=== PATIENT | male | born 1945 | race Caucasian/White ===

== ENCOUNTER 2018-01-10 16:24 | Inpatient (IN) | payer MEDICARE ==
[~2018-01-10] VITALS: Ht 182.9 cm; Wt 121.2 kg
[2018-01-10 16:28] VITALS: BP 134/74; PULSE 105; RESP 18; TEMP 100.1; O2SAT 92
[2018-01-10 16:52] LABS: BILIRUBIN, URINE NEG (NEG); BLOOD, URINE TRACE (NEG); GLUCOSE,URINE 1000 mg/dL (NEG); KETONE, URINE 10 mg/dL (NEG); NITRITE,URINE POS (NEG); PH, URINE 5.5 (5.0-8.5); URINE COLOR YELLOW (YELLW/STRAW); URINE LEUKOCYTE ESTERASE LARGE (NEG); WHITE BLOOD CELL CLUMPS FEW
[2018-01-10] MEDS ORDERED: ATOR40TA16 PO (17:28)
[2018-01-10] MEDS ORDERED: CLOP75TA PO (17:28)
[2018-01-10] MEDS ORDERED: FINA5TAB2 PO (17:28)
[2018-01-10] MEDS ORDERED: TAMS0.4C4 PO (17:28)
[2018-01-10] MEDS ORDERED: LANTUS2P SQ (17:28)
[2018-01-10] MEDS ORDERED: METO1TAB43 PO (17:28)
[2018-01-10] MEDS ORDERED: METF500T PO (17:28)
[2018-01-10] MEDS ORDERED: VITA100021 PO (17:28)
[2018-01-10] MEDS ORDERED: GABA300C5 PO (17:28)
[2018-01-10] MEDS ORDERED: CENTCHW4 CHEW ×2 (17:28)
[2018-01-10] MEDS ORDERED: NOVOLOGP2 SQ (17:28)
[2018-01-10] MEDS ORDERED: LOSA25TA PO (17:28)
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
[2018-01-10] MEDS ORDERED: ACETAMINOPHEN 325 MG TAB PO ONE (17:45)
[2018-01-10] MEDS ORDERED: SODIUM CHLOR 0.9% 1000 ML INJ 1,000 ML IV ONE (17:45)
[2018-01-10] MEDS ORDERED: cefTRIAXone INJ 1,000 MG in SODIUM CHLORIDE 0.9% INJ 100 ML IV ONE (17:45)
--- NOTE | 2018-01-10 17:59 | RADRPT ---
EXAM DATE/TIME: 01/10/2018 17:44 [place] COMPARISON: No previous studies available for comparison. INDICATIONS : Shortness of breath and left upper extremity numbness. MEDICAL HISTORY : Chronic obstructive pulmonary disease. Hypertension SURGICAL HISTORY : Fusion, cervical. Cardiac stent. ENCOUNTER: Initial ACUITY: 2 days PAIN SCORE: 0/10 LOCATION: Bilateral chest FINDINGS: A single view of the chest demonstrates the lungs to be symmetrically aerated without evidence of mas s, infiltrate or effusion. The cardiomediastinal contours are unremarkable. Osseous structures are intact. There is an anterior cervical fusion plate present. CONCLUSION: No acute disease. Tano Obando MD on January 10, 2018 at 17:56 Board Certified Radiologist. This report was verified electronically.
[2018-01-10 18:05] VITALS: BP 131/68; PULSE 96; RESP 20; O2SAT 97
[2018-01-10 18:14] LABS: AUTOMATED NEUTROPHIL # 10.7 TH/MM3 (1.8-7.7); BASOPHIL % 0.2 % (0.0-2.0); EOSINOPHIL % 0.2 % (0.0-4.0); HEMATOCRIT 43.2 % (39.0-51.0); HEMOGLOBIN 14.9 GM/DL (13.0-17.0); LYMPH % 11.9 % (9.0-44.0); LYMPHOCYTE # 1.6 TH/MM3 (1.0-4.8); MEAN CELL VOLUME 90.2 FL (80.0-100.0); MEAN CORPUSCULAR HGB CONC 34.4 % (32.0-36.0); MEAN PLATELET VOLUME 9.2 FL (7.0-11.0); MONO % 6.2 % (0.0-8.0); MONOCYTE # 0.8 TH/MM3 (0-0.9); NEUT % 81.5 % (16.0-70.0); PLATELET COUNT 123 TH/MM3 (150-450); RED BLOOD COUNT 4.79 MIL/MM3 (4.50-5.90); RED CELL DISTRIBUTION WIDTH 13.3 % (11.6-17.2); WHITE BLOOD COUNT 13.1 TH/MM3 (4.0-11.0)
[2018-01-10 18:17] LABS: LACTIC ACID SEPSIS PROTOCOL 2.2 mmol/L (0.4-2.0)
[2018-01-10 18:23] LABS: PROTHROMBIN TIME - PATIENT 10.3 SEC (9.8-11.6)
[2018-01-10 18:33] LABS: ALBUMIN 3.9 GM/DL (3.4-5.0); ALT (GPT) 53 U/L (12-78); AST (GOT) 24 U/L (15-37); BICARBONATE 25.9 MEQ/L (21.0-32.0); BLOOD UREA NITROGEN 13 MG/DL (7-18); CALCIUM 9.3 MG/DL (8.5-10.1); CHLORIDE 96 MEQ/L (98-107); CREATININE 1.41 MG/DL (0.60-1.30); GLOMERULAR FILTRATION RATE 50 ML/MIN (>89); GLUCOSE,RANDOM 328 MG/DL (74-106); SODIUM (NA) 131 MEQ/L (136-145)
[2018-01-10 18:35] LABS: ALKALINE PHOSPHATASE 70 U/L (45-117); TOTAL BILIRUBIN ADULT 0.9 MG/DL (0.2-1.0); TOTAL PROTEIN 7.5 GM/DL (6.4-8.2)
--- NOTE | 2018-01-10 19:42 | HHI.HP ---
HPI Service [facility] Primary Care Physician Non-Staff Admission Diagnosis UTI, sepsis Diagnoses: (1) Sepsis Diagnosis: Principal (2) UTI (urinary tract infection) Diagnosis: Principal (3) VIGNESH (acute kidney injury) Diagnosis: Principal (4) DM (diabetes mellitus) Diagnosis: Principal Travel History International Travel<30 Days: No Contact w/Intl Traveler <30 Da: No Traveled to Known Affected Are: No History of Present Illness This is a 72-year-old male with a PMH of HTN, BPH and DM who presented to the ER with complaints of fever and dysuria x1 day. Denies abdominal pain, nausea, vomiting or diarrhea. On arrival, BP 134/74, HR 105, O2 sat 92% RA, Temp 100.1. WBC 13.1. Platelets 123, no previous labs for comparison. Creatinine 1.41. Lactic Acid 2.2. INR 1.0. UA positive UTI. CXR with no acute findings. S/p Rocephin IV, Blood Cultures and Urine Cultures. Review of Systems Except as stated in HPI: all other systems reviewed are Neg ROS: 14 point review of systems otherwise negative. Past Family Social History Past Medical History PMH: HTN, BPH and DM Past Surgical History PAST SURGICAL HISTORY: Cardiac Stent, Cholecystectomy, Polypectomy, Right Elbow Surgery, Neck surgery Allergies: Coded Allergies: No Known Allergies (Verified Allergy, Unknown, 01/10/18) adhesive tape (Verified Adverse Reaction, Mild, skin peels, 01/10/18) Family History PAST FAMILY HISTORY: Reviewed. No h/o DM or CAD Social History PAST SOCIAL HISTORY: Negative for alcohol, tobacco or drugs. Physical Exam Vital Signs Vital Signs Date Time Temp Pulse Resp B/P (MAP) Pulse Ox O2 Delivery O2 Flow Rate FiO2 01/10/18 18:05 96 20 131/68 (89) 97 Room Air 01/10/18 16:28 100.1 105 18 134/74 (94) 92 Physical Exam PE: GENERAL: Extremely pleasant middle-aged white male in no acute distress. HEENT: PERRLA, EOMI. No scleral icterus or conjunctival pallor. No lid lag or facial droop. CARDIOVASCULAR: Regular rate and rhythm. No obvious murmurs to auscultation. No chest tenderness to palpation. RESPIRATORY: No obvious rhonchi or wheezing. Clear to auscultation. Breath sounds equal bilaterally. GASTROINTESTINAL: Abdomen soft, non-tender, nondistended. BS normal. MUSCULOSKELETAL: Extremities without clubbing, cyanosis, or edema. No obvious deformities. NEUROLOGICAL: Awake, alert and oriented x4. No focal neurologic deficits. Moving both upper and lower extremities spontaneously. Laboratory Laboratory Tests Test 01/10/18 16:30 01/10/18 17:45 Urine Color YELLOW Urine Turbidity CLEAR Urine pH 5.5 Urine Specific [place] 1.040 Urine Protein NEG Urine Glucose (UA) 1000 Urine Ketones 10 Urine Occult Blood TRACE Urine Nitrite POS Urine Bilirubin NEG Urine Urobilinogen LESS THAN 2.0 Urine Leukocyte Esterase LARGE Urine RBC 5 Urine WBC 31 Urine WBC Clumps FEW Microscopic Urinalysis Comment CULTURE INDICATED White Blood Count 13.1 Red Blood Count 4.79 Hemoglobin 14.9 Hematocrit 43.2 Mean Corpuscular Volume 90.2 Mean Corpuscular Hemoglobin 31.0 Mean Corpuscular Hemoglobin Concent 34.4 Red Cell Distribution Width 13.3 Platelet Count 123 Mean Platelet Volume 9.2 Neutrophils (%) (Auto) 81.5 Lymphocytes (%) (Auto) 11.9 Monocytes (%) (Auto) 6.2 Eosinophils (%) (Auto) 0.2 Basophils (%) (Auto) 0.2 Neutrophils # (Auto) 10.7 Lymphocytes # (Auto) 1.6 Monocytes # (Auto) 0.8 Eosinophils # (Auto) 0.0 Basophils # (Auto) 0.0 CBC Comment DIFF FINAL Differential Comment Prothrombin Time 10.3 Prothromb Time International Ratio 1.0 Activated Partial Thromboplast Time 25.2 Blood Urea Nitrogen 13 Creatinine 1.41 Random Glucose 328 Total Protein 7.5 Albumin 3.9 Calcium Level 9.3 Alkaline Phosphatase 70 Aspartate Amino Transf (AST/SGOT) 24 Alanine Aminotransferase (ALT/SGPT) 53 Total Bilirubin 0.9 Sodium Level 131 Potassium Level 4.2 Chloride Level 96 Carbon Dioxide Level 25.9 Anion Gap 9 Estimat Glomerular Filtration Rate 50 Lactic Acid Level 2.2 Date/Time Source Procedure Growth Status 01/10/18 17:45 Blood Peripheral Aerobic Blood Culture Pending Received 01/10/18 17:45 Blood Peripheral Anaerobic Blood Culture Pending Received 01/10/18 16:30 Urine Clean Catch Urine Culture Pending Received Result Diagram: 01/10/18 1745 01/10/18 1745 Caprini VTE Risk Assessment Caprini VTE Risk Assessment: No/Low Risk (score <= 1) Caprini Risk Assessment Model Point Value = 1 Point Value = 2 Point Value = 3 Point Value = 5 Age 41-60 Minor surgery BMI > 25 kg/m2 Swollen legs Varicose veins or History of unexplained or recurrent spontaneous Oral contraceptives or hormone replacement Sepsis (< 1 month) Serious lung disease, including pneumonia (< 1 month) Abnormal pulmonary function Acute myocardial infarction Congestive heart failure (< 1 month) History of inflammatory bowel disease Medical patient at bed rest Age 61-74 Arthroscopic surgery Major open surgery (> 45 min) Laparoscopic surgery (> 45 min) Malignancy Confined to bed (> 72 hours) Immobilizing plaster cast Central venous access Age >= 75 History of VTE Family history of VTE Factor V Leiden Prothrombin [id number] Lupus anticoagulant Anticardiolipin antibodies Elevated serum homocysteine Heparin-induced thrombocytopenia Other congenital or acquired thrombophilia Stroke (< 1 month) Elective arthroplasty Hip, pelvis, or leg fracture Acute spinal cord injury (< 1 month) Prophylaxis Regimen Total Risk Factor Score Risk Level Prophylaxis Regimen 0-1 Low Early ambulation 2 Moderate Order ONE of the following: *Sequential Compression Device (SCD) *Heparin 5000 units SQ BID 3-4 Higher Order ONE of the following medications: *Heparin 5000 units SQ TID *Enoxaparin/Lovenox 40 mg SQ daily (WT < 150 kg, CrCl > 30 mL/min) *Enoxaparin/Lovenox 30 mg SQ daily (WT < 150 kg, CrCl > 10-29 mL/min) *Enoxaparin/Lovenox 30 mg SQ BID (WT < 150 kg, CrCl > 30 mL/min) AND/OR *Sequential Compression Device (SCD) 5 or more Highest Order ONE of the following medications: *Heparin 5000 units SQ TID (Preferred with Epidurals) *Enoxaparin/Lovenox 40 mg SQ daily (WT < 150 kg, CrCl > 30 mL/min) *Enoxaparin/Lovenox 30 mg SQ daily (WT < 150 kg, CrCl > 10-29 mL/min) *Enoxaparin/Lovenox 30 mg SQ BID (WT < 150 kg, CrCl > 30 mL/min) AND *Sequential Compression Device (SCD) Assessment and Plan Problem List: (1) Sepsis ICD Code: A41.9 - Sepsis, unspecified organism Status: Acute (2) UTI (urinary tract infection) ICD Code: N39.0 - Urinary tract infection, site not specified Status: Acute (3) VIGNESH (acute kidney injury) ICD Code: N17.9 - Acute kidney failure, unspecified (4) DM (diabetes mellitus) ICD Code: E11.9 - Type 2 diabetes mellitus without complications Assessment and Plan A/P: 1. Sepsis: Temp 100.1, HR 105, WBC 13.1, Source-UTI. CXR with no acute findings, images reviewed by me. S/p Rocephin IV, Blood Cultures. Continue IVF. Lactic Acid 2.2, repeat 1.5, will monitor. 2. UTI: U/a w/ UTI, follow up urine cultures, continue IV Rocephin/IVF. 3. VIGNESH: Creatinine 1.41, no previous labs for comparison, presumably new. IVF for hydration, repeat labs in am. 4. DM: Sliding scale w/ Accu-Cheks. Hold Metformin in light of sepsis and renal insufficiency. 5. DVT Prophylaxis: SCD/Teds. 6. Social work for d/c planning as needed. 7. Case discussed w/ ER physician at length, labs/records/imaging reviewed by me. Physician Certification 2 Midnight Certification Type: Admission for Inpatient Services Order for Inpatient Services The services are ordered in accordance with Medicare regulations or non- Medicare payer requirements, as applicable. In the case of services not specified as inpatient-only, they are appropriately provided as inpatient services in accordance with the 2-midnight benchmark. Estimated LOS (days): 2 days is the estimated time the patient will need to remain in the hospital, assuming treatment plan goals are met and no additional complications. Post-Hospital Plan: Not yet determined Problem Qualifiers (1) Sepsis: Qualified Codes: A41.9 - Sepsis, unspecified organism (2) UTI (urinary tract infection): Qualified Codes: N30.01 - Acute cystitis with hematuria Paige Cardoza MD Jan 10, 2018 19:42
[2018-01-10] MEDS ORDERED: DEXTROSE 50% IN WATER 50 ML VIAL(D50) IV PUSH PRN (19:45)
[2018-01-10] MEDS ORDERED: SENNOSIDES 8.6 MG TAB PO PRN (19:45)
[2018-01-10] MEDS ORDERED: ONDANSETRON HCL 4 MG/2 ML VIAL IVP PRN (19:45)
[2018-01-10] MEDS ORDERED: MAGNESIUM HYDROXIDE SUSP 30 ML CUP PO PRN (19:45)
[2018-01-10] MEDS ORDERED: LACTULOSE SYRUP 20 GM/30 ML CUP PO PRN (19:45)
[2018-01-10] MEDS ORDERED: ACETAMINOPHEN 325 MG TAB PO PRN (19:45)
[2018-01-10] MEDS ORDERED: SODIUM CHLORIDE 0.9% FLUSH 10 ML FLUSH IV FLUSH PRN (19:45)
[2018-01-10] MEDS ORDERED: ACETAMINOPHEN/HYDROcodone 325 MG/5 MG TAB PO PRN (19:45)
[2018-01-10] MEDS ORDERED: BISACODYL 10 MG SUPP RECTAL PRN (19:45)
[2018-01-10] MEDS ORDERED: MORPHINE SULFATE 2 MG/ML INJ IV PUSH PRN (19:45)
[2018-01-10] MEDS ORDERED: GLUCAGON 1 MG/ML VIAL OTHER PRN (19:45)
[2018-01-10 21:15] VITALS: BP 135/73; PULSE 85; RESP 20; TEMP 98.8; O2SAT 95
[2018-01-10] MEDS: GABAPENTIN 300 MG CAP PO SCH (22:00)
[2018-01-10] MEDS: TAMSULOSIN HCL 0.4 MG CAP PO SCH (22:00)
[2018-01-10] MEDS: METOPROLOL SUCCINATE 50 MG EXTENDED RELEASE TAB PO SCH (22:00)
[2018-01-10] MEDS: DOCUSATE SODIUM 50 MG/SENNA 8.6 MG TAB PO SCH (22:00)
[2018-01-10] MEDS: ATORVASTATIN 40 MG TAB PO SCH (22:01)
[2018-01-10] MEDS: INSULIN ASPART SUPPLEMENTAL SCALE SQ SCH (22:01)
[2018-01-10] MEDS: SODIUM CHLOR 0.9% 1000 ML INJ 1,000 ML IV SCH (22:01)
[2018-01-10] MEDS: SODIUM CHLORIDE 0.9% FLUSH 10 ML FLUSH IV FLUSH SCH (22:01)
[2018-01-10 23:40] VITALS: PULSE 105
[2018-01-10 23:47] VITALS: BP 136/66; PULSE 113; RESP 20; TEMP 102.7; O2SAT 97
[2018-01-11] VITALS (7 sets, daily range): BP systolic 111–152; BP diastolic 56–76; PULSE 75–94; RESP 18–20; TEMP 97.9–99.5; O2SAT 94–95
[2018-01-11 05:22] LABS: AUTOMATED NEUTROPHIL # 8.4 TH/MM3 (1.8-7.7); BASOPHIL % 0.2 % (0.0-2.0); EOSINOPHIL % 0.2 % (0.0-4.0); HEMATOCRIT 41.4 % (39.0-51.0); HEMOGLOBIN 14.3 GM/DL (13.0-17.0); LYMPH % 16.3 % (9.0-44.0); LYMPHOCYTE # 1.8 TH/MM3 (1.0-4.8); MEAN CELL VOLUME 89.7 FL (80.0-100.0); MEAN CORPUSCULAR HGB CONC 34.5 % (32.0-36.0); MEAN PLATELET VOLUME 9.4 FL (7.0-11.0); MONO % 7.4 % (0.0-8.0); MONOCYTE # 0.8 TH/MM3 (0-0.9); NEUT % 75.9 % (16.0-70.0); PLATELET COUNT 105 TH/MM3 (150-450); RED BLOOD COUNT 4.62 MIL/MM3 (4.50-5.90); RED CELL DISTRIBUTION WIDTH 13.1 % (11.6-17.2); WHITE BLOOD COUNT 11.1 TH/MM3 (4.0-11.0)
[2018-01-11 05:28] LABS: ALBUMIN 3.4 GM/DL (3.4-5.0); ALKALINE PHOSPHATASE 63 U/L (45-117); ALT (GPT) 42 U/L (12-78); AST (GOT) 19 U/L (15-37); BICARBONATE 22.9 MEQ/L (21.0-32.0); CALCIUM 8.4 MG/DL (8.5-10.1); CHLORIDE 102 MEQ/L (98-107); CREATININE 1.18 MG/DL (0.60-1.30); GLOMERULAR FILTRATION RATE 61 ML/MIN (>89); GLUCOSE,RANDOM 241 MG/DL (74-106); SODIUM (NA) 135 MEQ/L (136-145); TOTAL BILIRUBIN ADULT 0.9 MG/DL (0.2-1.0); TOTAL PROTEIN 6.9 GM/DL (6.4-8.2)
[2018-01-11] MEDS: SODIUM CHLOR 0.9% 1000 ML INJ 1,000 ML IV SCH ×2 (05:28→15:32)
[2018-01-11 05:29] LABS: BLOOD UREA NITROGEN 13 MG/DL (7-18)
[2018-01-11] MEDS: DOCUSATE SODIUM 50 MG/SENNA 8.6 MG TAB PO SCH ×2 (08:05→21:00)
[2018-01-11] MEDS: GABAPENTIN 300 MG CAP PO SCH ×2 (08:06→20:55)
[2018-01-11] MEDS: CLOPIDOGREL 75 MG TAB PO SCH (08:06)
[2018-01-11] MEDS: INSULIN ASPART SUPPLEMENTAL SCALE SQ SCH ×4 (08:07→20:56)
[2018-01-11] MEDS: FINASTERIDE 5 MG TAB PO SCH (08:07)
[2018-01-11] MEDS: TAMSULOSIN HCL 0.4 MG CAP PO SCH ×2 (08:07→21:00)
[2018-01-11] MEDS: SODIUM CHLORIDE 0.9% FLUSH 10 ML FLUSH IV FLUSH SCH ×2 (08:37→21:00)
--- NOTE | 2018-01-11 16:07 | HHI.PR ---
Subjective Remarks Patient states dysuria resolved denies fevers or chills Denies abdominal pain, nausea or vomiting Objective Vitals Vital Signs Date Time Temp Pulse Resp B/P (MAP) Pulse Ox O2 Delivery O2 Flow Rate FiO2 01/11/18 12:00 98.2 76 20 111/56 (74) 95 01/11/18 08:00 Room Air 01/11/18 08:00 98.0 81 20 152/76 (101) 95 01/11/18 03:40 94 01/11/18 03:38 97.9 91 20 116/61 (79) 94 01/10/18 23:51 Room Air 01/10/18 23:47 102.7 113 20 136/66 (89) 97 01/10/18 23:40 105 01/10/18 21:15 98.8 85 20 135/73 (93) 95 01/10/18 20:45 01/10/18 18:05 96 20 131/68 (89) 97 Room Air 01/10/18 16:28 100.1 105 18 134/74 (94) 92 I/O 01/10/18 01/10/18 01/10/18 01/11/18 01/11/18 01/11/18 07:00 15:00 23:00 07:00 15:00 23:00 Intake Total 1100 ml 1200 ml 480 ml Output Total 750 ml Balance 1100 ml 450 ml 480 ml Intake Oral 200 ml 480 ml IV Total 1100 ml 1000 ml Output Urine Total 750 ml # Voids 1 4 # Bowel Movements 2 Result Diagram: 01/11/18 0410 01/11/18 0410 Imaging Last Impressions Chest X-Ray 01/10/18 5726 Signed Impressions: Service Date/Time: Wednesday, January 10, 2018 17:44 - CONCLUSION: No acute disease. Tano Obando MD Objective Remarks AAOx3 nad Clear lungs S1S2 RRR abdomen obese, soft, positive bowel sounds no edema in lower extremities Medications and IVs Current Medications Medications (Trade) Dose Ordered Sig/Anjelica Route Start Time Stop Time Status Last Admin (D50w (Vial) Inj) 50 ml UNSCH PRN IV PUSH 01/10/18 19:45 (Glucagon Inj) 1 mg UNSCH PRN OTHER 01/10/18 19:45 (NovoLOG SUPPLEMENTAL SCALE) 1 ACHS SLIDING SCALE SQ 01/10/18 21:00 01/11/18 12:59 Ceftriaxone Sodium 1000 mg/ Sodium Chloride 100 ml @ 200 mls/hr Q24H IV 01/11/18 20:00 Sodium Chloride 1,000 ml @ 100 mls/hr Q10H IV 01/10/18 20:00 01/11/18 15:32 (NS Flush) 2 ml UNSCH PRN IV FLUSH 01/10/18 19:45 (NS Flush) 2 ml BID IV FLUSH 01/10/18 21:00 01/10/18 22:01 (Zofran Inj) 4 mg Q6H PRN IVP 01/10/18 19:45 (Tylenol) 650 mg Q6H PRN PO 01/10/18 19:45 01/10/18 23:34 (Altus 5-325 Mg) 1 tab Q4H PRN PO 01/10/18 19:45 (Morphine Inj) 2 mg Q3H PRN IV PUSH 01/10/18 19:45 (Kandy-Colace) 1 tab BID PO 01/10/18 21:00 01/10/18 22:00 (Milk Of Magnesia Liq) 30 ml Q12H PRN PO 01/10/18 19:45 (Senokot) 17.2 mg Q12H PRN PO 01/10/18 19:45 (Dulcolax Supp) 10 mg DAILY PRN RECTAL 01/10/18 19:45 (Lactulose Liq) 30 ml DAILY PRN PO 01/10/18 19:45 (Lipitor) 40 mg HS PO 01/10/18 21:00 01/10/18 22:01 (Plavix) 75 mg DAILY PO 01/11/18 09:00 01/11/18 08:06 (Proscar) 5 mg DAILY PO 01/11/18 09:00 01/11/18 08:07 (Neurontin) 300 mg BID PO 01/10/18 21:00 01/11/18 08:06 (Flomax) 0.4 mg BID PO 01/10/18 21:00 01/11/18 08:07 (Toprol Xl) 100 mg HS PO 01/10/18 21:00 01/10/18 22:00 (Levemir Inj) 54 units HS SQ 01/11/18 21:00 A/P Problem List: (1) Sepsis ICD Code: A41.9 - Sepsis, unspecified organism Status: Acute (2) UTI (urinary tract infection) ICD Code: N39.0 - Urinary tract infection, site not specified Status: Acute (3) VIGNESH (acute kidney injury) ICD Code: N17.9 - Acute kidney failure, unspecified (4) DM (diabetes mellitus) ICD Code: E11.9 - Type 2 diabetes mellitus without complications Assessment and Plan 1. Sepsis: Temp 100.1, HR 105, WBC 13.1, Source-UTI. CXR with no acute findings, images reviewed by me. S/p Rocephin IV, Blood Cultures. Continue IVF. Lactic Acid 2.2, repeat 1.5, will monitor. 01/11 Sepsis clinically resolving. Continnue IV Rocephin. 2. UTI: U/a w/ UTI, follow up urine cultures, continue IV Rocephin/IVF. 01/11 Urine culture is growing gram negative rods. 3. VIGNESH: Creatinine 1.41, no previous labs for comparison, presumably new. IVF for hydration, repeat labs in am. 01/11 VIGNESH resolving, continue IV lfuids. 4. DM: Sliding scale w/ Accu-Cheks. Hold Metformin in light of sepsis and renal insufficiency. 01/11 Blood sugars severely elevated in the 300's. Resume home insulin Levemir and continue SSI. 5. DVT Prophylaxis: SCD/Teds. Will add lovenox SQ. Problem Qualifiers (1) Sepsis: Qualified Codes: A41.9 - Sepsis, unspecified organism (2) UTI (urinary tract infection): Qualified Codes: N30.01 - Acute cystitis with hematuria Buddy Billingsley MD Jan 11, 2018 16:07
[2018-01-11] MEDS ORDERED: cefTRIAXone INJ 1,000 MG in SODIUM CHLORIDE 0.9% INJ 100 ML IV SCH (20:00)
[2018-01-11] MEDS: METOPROLOL SUCCINATE 50 MG EXTENDED RELEASE TAB PO SCH (20:55)
[2018-01-11] MEDS: ATORVASTATIN 40 MG TAB PO SCH (20:56)
[2018-01-11] MEDS ORDERED: INSULIN DETEMIR 100 UNITS/ML VIAL SQ SCH (21:00)
[2018-01-12] VITALS: BP 127/75; PULSE 70; PULSE 71; RESP 18; TEMP 99.1; O2SAT 95
[2018-01-12] MEDS ORDERED: ENOXAPARIN SODIUM 40 MG/0.4 ML SYRINGE SQ SCH
[2018-01-12] MEDS: SODIUM CHLOR 0.9% 1000 ML INJ 1,000 ML IV SCH (02:49)
[2018-01-12 04:00] VITALS: BP 129/72; PULSE 69; RESP 18; TEMP 98.5; O2SAT 94
[2018-01-12 04:06] VITALS: PULSE 69
[2018-01-12 08:00] VITALS: BP 143/83; PULSE 66; PULSE 67; RESP 20; TEMP 98.3; O2SAT 95
[2018-01-12] MEDS: FINASTERIDE 5 MG TAB PO SCH (08:53)
[2018-01-12] MEDS: GABAPENTIN 300 MG CAP PO SCH (08:53)
[2018-01-12] MEDS: CLOPIDOGREL 75 MG TAB PO SCH (08:53)
[2018-01-12] MEDS: TAMSULOSIN HCL 0.4 MG CAP PO SCH (08:53)
[2018-01-12] MEDS: SODIUM CHLORIDE 0.9% FLUSH 10 ML FLUSH IV FLUSH SCH (08:54)
[2018-01-12] MEDS: INSULIN ASPART SUPPLEMENTAL SCALE SQ SCH ×2 (08:54→12:19)
[2018-01-12] MEDS: DOCUSATE SODIUM 50 MG/SENNA 8.6 MG TAB PO SCH (08:55)
[2018-01-12 11:51] LABS: AUTOMATED NEUTROPHIL # 5.7 TH/MM3 (1.8-7.7); BASOPHIL % 0.2 % (0.0-2.0); EOSINOPHIL # 0.1 TH/MM3 (0-0.4); EOSINOPHIL % 1.2 % (0.0-4.0); HEMATOCRIT 38.9 % (39.0-51.0); HEMOGLOBIN 13.4 GM/DL (13.0-17.0); LYMPHOCYTE # 1.4 TH/MM3 (1.0-4.8); MEAN CORPUSCULAR HEMOGLOBIN 31.1 PG (27.0-34.0); MEAN CORPUSCULAR HGB CONC 34.5 % (32.0-36.0); MEAN PLATELET VOLUME 9.4 FL (7.0-11.0); MONO % 8.3 % (0.0-8.0); MONOCYTE # 0.6 TH/MM3 (0-0.9); NEUT % 72.3 % (16.0-70.0); PLATELET COUNT 113 TH/MM3 (150-450); RED BLOOD COUNT 4.32 MIL/MM3 (4.50-5.90); RED CELL DISTRIBUTION WIDTH 12.8 % (11.6-17.2); WHITE BLOOD COUNT 7.8 TH/MM3 (4.0-11.0)
[2018-01-12 12:00] VITALS: BP 156/85; PULSE 70; RESP 20; TEMP 98; O2SAT 95
[2018-01-12 12:18] LABS: ALBUMIN 3.2 GM/DL (3.4-5.0); AST (GOT) 20 U/L (15-37); BICARBONATE 23.3 MEQ/L (21.0-32.0); BLOOD UREA NITROGEN 13 MG/DL (7-18); CALCIUM 8.8 MG/DL (8.5-10.1); CHLORIDE 103 MEQ/L (98-107); CREATININE 1.03 MG/DL (0.60-1.30); GLOMERULAR FILTRATION RATE 71 ML/MIN (>89); GLUCOSE,RANDOM 238 MG/DL (74-106); MAGNESIUM 2.2 MG/DL (1.5-2.5); SODIUM (NA) 134 MEQ/L (136-145)
[2018-01-12 12:19] LABS: ALT (GPT) 40 U/L (12-78); PHOSPHORUS 2.4 MG/DL (2.5-4.9)
[2018-01-12 12:21] LABS: ALKALINE PHOSPHATASE 66 U/L (45-117); TOTAL BILIRUBIN ADULT 0.5 MG/DL (0.2-1.0); TOTAL PROTEIN 6.8 GM/DL (6.4-8.2)
[2018-01-12] MEDS ORDERED: CEFU1TAB20 PO (13:37)
--- NOTE | 2018-01-12 13:38 | HHI.DCPOC ---
Discharge Care Plan Diagnosis: (1) Sepsis (2) UTI (urinary tract infection) (3) DM (diabetes mellitus) (4) VIGNESH (acute kidney injury) Goals to Promote Your Health * To prevent worsening of your condition and complications * To maintain your health at the optimal level Directions to Meet Your Goals Take your medications as prescribed Follow your dietary instruction Follow activity as directed Keep your appointments as scheduled Take your immunizations and boosters as scheduled If your symptoms worsen call your PCP, if no PCP go to Urgent Care Center or Emergency Room Smoking is Dangerous to Your Health. Avoid second hand smoke Call the 24-hour hour crisis hotline for domestic abuse at Buddy Billingsley MD Jan 12, 2018 13:38
--- NOTE | 2018-01-12 13:56 | HHI.DS ---
Discharge Summary Admission Date Jan 10, 2018 at 19:38 Discharge Date: Jan 12, 2018 Admitting Diagnosis UTI, sepsis (1) Sepsis ICD Code: A41.9 - Sepsis, unspecified organism Diagnosis: Principal Status: Resolved (2) UTI (urinary tract infection) ICD Code: N39.0 - Urinary tract infection, site not specified Diagnosis: Principal Status: Acute (3) VIGNESH (acute kidney injury) ICD Code: N17.9 - Acute kidney failure, unspecified Diagnosis: Principal Status: Resolved (4) DM (diabetes mellitus) ICD Code: E11.9 - Type 2 diabetes mellitus without complications Diagnosis: Principal Status: Chronic Procedures none Brief History - From Admission This is a 72-year-old male with a PMH of HTN, BPH and DM who presented to the ER with complaints of fever and dysuria x1 day. Denies abdominal pain, nausea, vomiting or diarrhea. On arrival, BP 134/74, HR 105, O2 sat 92% RA, Temp 100.1. WBC 13.1. Platelets 123, no previous labs for comparison. Creatinine 1.41. Lactic Acid 2.2. INR 1.0. UA positive UTI. CXR with no acute findings. S/p Rocephin IV, Blood Cultures and Urine Cultures. CBC/BMP: 01/12/18 1123 01/12/18 1123 Significant Findings Laboratory Tests Test 01/10/18 16:30 01/10/18 17:45 01/10/18 20:35 01/11/18 04:10 Urine Specific [place] 1.040 (1.002-1.035) Urine Glucose (UA) 1000 mg/dL (NEG) Urine Ketones 10 mg/dL (NEG) Urine Occult Blood TRACE (NEG) Urine Nitrite POS (NEG) Urine Leukocyte Esterase LARGE (NEG) Urine RBC 5 /hpf (0-3) Urine WBC 31 /hpf (0-5) Urine WBC Clumps FEW (NONE) White Blood Count 13.1 TH/MM3 (4.0-11.0) 11.1 TH/MM3 (4.0-11.0) Platelet Count 123 TH/MM3 (150-450) 105 TH/MM3 (150-450) Neutrophils (%) (Auto) 81.5 % (16.0-70.0) 75.9 % (16.0-70.0) Neutrophils # (Auto) 10.7 TH/MM3 (1.8-7.7) 8.4 TH/MM3 (1.8-7.7) Creatinine 1.41 MG/DL (0.60-1.30) Random Glucose 328 MG/DL (74-106) 241 MG/DL (74-106) Sodium Level 131 MEQ/L (136-145) 135 MEQ/L (136-145) Chloride Level 96 MEQ/L (98-107) Estimat Glomerular Filtration Rate 50 ML/MIN (>89) 61 ML/MIN (>89) Lactic Acid Level 2.2 mmol/L (0.4-2.0) Calcium Level 8.4 MG/DL (8.5-10.1) Test 01/12/18 11:23 Red Blood Count 4.32 MIL/MM3 (4.50-5.90) Hematocrit 38.9 % (39.0-51.0) Platelet Count 113 TH/MM3 (150-450) Neutrophils (%) (Auto) 72.3 % (16.0-70.0) Monocytes (%) (Auto) 8.3 % (0.0-8.0) Random Glucose 238 MG/DL (74-106) Albumin 3.2 GM/DL (3.4-5.0) Phosphorus Level 2.4 MG/DL (2.5-4.9) Sodium Level 134 MEQ/L (136-145) Estimat Glomerular Filtration Rate 71 ML/MIN (>89) Imaging Last Impressions Chest X-Ray 01/10/18 [id number] Signed Impressions: Service Date/Time: Wednesday, January 10, 2018 17:44 - CONCLUSION: No acute disease. Tano Obando MD PE at Discharge AAOx3 nad Clear lungs S1S2 RRR abdomen obese, soft, positive bowel sounds no edema in lower extremities Pt update on day of discharge Patient denies chest pain, shortness of breath, patient is afebrile, denies nausea vomiting or abdominal pain. Hospital Course The patient was admitted the medical floor, monitor on telemetry. Found to be septic with a temperature of 100.1F, heart rate 105, leukocytosis of 13.1 with the source of the infection being urinary tract infection. Chest x-ray was obtained without any acute findings. The patient was on IV Rocephin and treated supportively with IV fluids, Tylenol as needed for fever. Urine culture grew pansensitive E. coli. Patient t discharge home with cefuroxime for 10 days. The patient was advised to follow-up with an urologist at home. The patient replied that he already had a follow-up appointment with 1 coming soon. The patient also was found to have acute kidney injury with a creatinine 1.41 on admission. Patient was treated with IV fluids. Creatinine prior to discharge was 1.03 and acute kidney injury resolving. No previous labs were available for comparison. Patient was placed on SSI with Accu-Cheks control his diabetes, however this was very elevated and his home insulin Levemir was resumed. That sugars were much improved in the 170s prior to discharge. The patient was instructed to return to his home insulin regimen. The patient was placed on Lovenox subcutaneously and SCDs for DVT prophylaxis during his hospital stay. Cultures were negative 2 prior to discharge. Patient was also found to be hyponatremic with sodium of 131, likely due to dehydration secondary to sepsis and UTI. Treated with IV normal saline and improved. BMP was monitored throughout hospital stay. Pt Condition on Discharge: Stable Discharge Disposition: Discharge Home Discharge Time: <= 30 minutes Discharge Instructions DIET: Follow Instructions for: Diabetic Diet Activities you can perform: Regular-No Restrictions Follow up Referrals: PCP Follow-up - 2 Weeks Urology - 2 Weeks New Medications: Cefuroxime (Cefuroxime) 500 Mg Tab 500 MG PO BID for Infection, #20 TAB 0 Refills Continued Medications: Atorvastatin (Atorvastatin) 40 Mg Tab 40 MG PO HS for Cholesterol Management, #30 TAB 0 Refills Clopidogrel (Clopidogrel) 75 Mg Tab 75 MG PO DAILY for Blood Clot Prevention, #30 TAB 0 Refills Cyanocobalamin (Vitamin B-12) 1,000 Mcg Subl 1000 MCG PO HS for Nutritional Supplement, TAB.SL 0 Refills Finasteride (Finasteride) 5 Mg Tab 5 MG PO DAILY for Manage Prostate Problems, #30 TAB 0 Refills Do not crush. Gabapentin (Gabapentin) 300 Mg Cap 300 MG PO BID, #60 CAP 0 Refills Insulin Aspart Inj (Novolog Inj) 1,000 Unit/10 Ml Vial 16 UNITS SQ ACHS for Blood Sugar Management, #10 ML 0 Refills Max dose at bedtime:( )units; sugars less than 70,(0) units; sugars 150-199,(5) units; sugars 200-249,(10) units; sugars 250-299,(15) units; sugars 300-349,(20)units; sugars greater than 349,(25)units Insulin Glargine Inj (Lantus Inj) 1,000 Unit/10 Ml Vial 54 UNITS SQ HS for Blood Sugar Management, VIAL 0 Refills Losartan (Losartan) 25 Mg Tab 25 MG PO DAILY for Blood Pressure Management, #30 TAB 0 Refills Metformin (Metformin) 500 Mg Tab 500 MG PO HS for Blood Sugar Management, #30 TAB 0 Refills With a meal Metoprolol Succinate ER 24 HR (Metoprolol Succinate ER 24 HR) 100 Mg Tab 100 MG PO HS, #30 TAB 0 Refills Multiple Vitamins W/ Minerals (Centrum) 1 Chew 1 TAB CHEW DAILY for Nutritional Supplement, TAB 0 Refills Multiple Vitamins W/ Minerals (Centrum) 1 Chew 1 TAB CHEW BID for Nutritional Supplement, TAB 0 Refills Tamsulosin (Tamsulosin) 0.4 Mg Cap 0.4 MG PO BID for Manage Prostate Problems, #30 CAP 0 Refills Buddy Billingsley MD Jan 12, 2018 13:56
== END 2018-01-12 14:50 | disposition home or self-care (01) | DRG 872 ==
LOC: NEPC 16:24 → NEDA 19:38 → N04A 20:49
PROVIDERS: ADMIT Hospitalist; ATTEND Hospitalist
DX: A41.51 Sepsis due to Escherichia coli [E. coli] (principal); N17.9 Acute kidney failure, unspecified; E11.65 Type 2 diabetes mellitus with hyperglycemia; E87.1 Hypo-osmolality and hyponatremia; N39.0 Urinary tract infection, site not specified; I48.91 Unspecified atrial fibrillation; I10 Essential (primary) hypertension; E78.5 Hyperlipidemia, unspecified; E86.0 Dehydration; R65.20 Severe sepsis without septic shock; M54.2 Cervicalgia; G89.29 Other chronic pain; I25.2 Old myocardial infarction; N40.0 Benign prostatic hyperplasia without lower urinary tract symptoms; Z79.4 Long term (current) use of insulin; Z86.73 Personal history of transient ischemic attack (TIA), and cerebral infarction without residual deficits; Z95.5 Presence of coronary angioplasty implant and graft
CPT/HCPCS: 71045; 80053; 81001; 82948; 83605; 83735; 84100; 85025; 85610; 85730; 87040; 87077; 87086; 87186; 96365; J0696; J1650; J1815; J7030

== ENCOUNTER 2018-10-22 13:44 | Observation (INO) ==
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
[2018-10-22 15:24] LABS: Baso % (Auto) 0.5 % (0.0-2.0); Eos # (Auto) 0.1 th/mm3 (0.0-0.4); Eos % (Auto) 1.9 % (0.0-4.0); Hematocrit 43.7 % (39.0-51.0); Hemoglobin 15.1 gm/dL (13.0-17.0); Lymph % (Auto) 32.7 % (9.0-44.0); Mean Corpuscular HGB Conc 34.6 % (32.0-36.0); Mean Corpuscular Hemoglobin 31.3 pg (27.0-34.0); Mean Corpuscular Volume 90.5 fL (80.0-100.0); Mean Platelet Volume 9.5 fL (7.0-11.0); Mono # (Auto) 0.5 th/mm3 (0.0-0.9); Mono % (Auto) 7.6 % (0.0-8.0); Neut # (Auto) 3.4 th/mm3 (1.8-7.7); Neut % (Auto) 57.3 % (16.0-70.0); Platelet Count 140 th/mm3 (150-450); Red Blood Count 4.83 mil/mm3 (4.50-5.90); Red Cell Distribution Width 13.2 % (11.6-17.2)
[2018-10-22 15:45] LABS: Activated Partial Thrombo Time 24.5 sec (23.4-31.7); Prothrombin Time 10.4 sec (9.8-11.6)
--- NOTE | 2018-10-22 15:48 | XR ---
EXAM DATE: 10/22/2018 3:46 PM EST AGE/SEX: 73 years / Male INDICATIONS: Chest pain and short of breath. CLINICAL DATA: This is the patient's initial encounter. Patient reports that signs and symptoms have been present for 2 days and indicates a pain score of 3/10. MEDICAL/SURGICAL HISTORY: . Congetive heart failure, agent orange exposure. None. COMPARISON: [facility] [place], [place]. . FINDINGS: A single AP view of the chest demonstrates the lungs to be symmetrically aerated without evidence of mass, infiltrate or effusion. The cardiomediastinal contours are stable. Postsurgical features of l ower cervical fixation. Osseous structures are intact. CONCLUSION: 1. Stable mild compensated cardiomegaly. Electronically signed by: Isra Ortega MD Board Certified Radiologist 10/22/2018 3:47 PM EST
[2018-10-22] MEDS ORDERED: Acetaminophen 325 MG Tablet PO ONE (15:55)
[2018-10-22 16:00] LABS: Alanine Aminotransferase 66 U/L (12-78); Anion Gap 9 meq/L (5-15); Aspartate Aminotransferase 35 U/L (15-37); Blood Urea Nitrogen 15 mg/dL (7-18); Calcium 8.9 mg/dL (8.5-10.1); Chloride 104 meq/L (98-107); Glomerular Filtration Rate 63 mL/min (>89); Glucose,Random 232 mg/dL (74-106); Magnesium 2.4 mg/dL (1.5-2.5); Potassium 4.1 meq/L (3.5-5.1); Sodium 139 meq/L (136-145)
[2018-10-22 16:03] LABS: Alkaline Phosphatase 60 U/L (45-117); Creatine Kinase 109 U/L (39-308); Total Protein 7.5 g/dL (6.4-8.2)
[2018-10-22 16:16] LABS: Creatine Kinase MB 1.8 ng/mL (0.5-3.6)
--- NOTE | 2018-10-22 17:18 | CT ---
EXAM DATE: 10/22/2018 5:13 PM EST AGE/SEX: 73 years / Male INDICATIONS: Patient experiences chest pain and shortness of breath for 5 days. CLINICAL DATA: This is the patient's initial encounter. Patient reports that signs and symptoms have been present for 4 - 6 days and indicates a pain score of 4/10. MEDICAL/SURGICAL HISTORY: Congestive heart failure. Chronic obstructive pulmonary disease. Diabet es. Appendectomy. RADIATION DOSE: 23.31 CTDI (mGy) COMPARISON: [facility], CHEST 1V SINGLE AP, 10/22/2018. . TECHNIQUE: Volumetric scanning was performed using a multi-row detector CT scanner during bolus infu samara of 72 ml Omnipaque 350 (iohexol) nonionic water-soluble contrast as a single exam dose. The beatrice a was post processed with a variety of visualization algorithms including full volume maximum intensi ty projection and sliding thin slab reformation. Using automated exposure control and adjustment of t he mA and/or kV according to patient size, radiation dose was kept as low as reasonably achievable to obtain optimal diagnostic quality images. DICOM format image data is available electronically for r eview and comparison. FINDINGS: Pulmonary Arteries: No filling defects are seen in the pulmonary arteries out to the subsegmental ve ssels. The left and right pulmonary arteries are normal in diameter. Lung: There is a solitary pulmonary nodule measuring 8 mm in the right perihilar area. Otherwise, th e lungs are clear and well-aerated. No focal or acute pulmonary infiltrates are demonstrated. Effusion: None. Mediastinum: A few nonspecific mediastinal lymph nodes are demonstrated. Other: The axilla is unremarkable. There is evidence of fatty infiltration throughout the liver. CONCLUSION: 1. No evidence of pulmonary embolism. 2. Single well-defined 8 mm pulmonary nodule in the right perihilar area. Recommend PET/CT to evalua te for focal hypermetabolic activity. Electronically signed by: Dejan Christiansen MD Board Certified Radiologist 10/22/2018 5:17 PM EST
--- NOTE | 2018-10-22 18:14 | P.HPFP ---
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 Empagliflozin was recently added. SSI w/accuchecks Con't home Gabapentin 300 mg BID Other meds BPH: Flomax for urination. Hold proscar to prevent polypharmacy Fluids: none Electrolytes: PRN Nutrition: Diabetic diet DVT prophy: Plavix, SCDs DNR code <Rahel Chen N - 10/22/18 21:21> - Attending Attestation The exam, history, and the medical decision-making described in the above note were completed with the assistance of the resident physician. I reviewed and agree with the findings presented. I attest that I had a [id number] encounter with the patient on the following day, and personally performed and documented my assessment and findings in the medical record. See my documentation on 10/23/18. <Cameron Strong - 10/23/18 13:59>
[2018-10-22 18:41] LABS: Bilirubin,Urine Negative (Negative); Clarity,Urine Clear (Clear); Color,Urine Yellow (Yellw/Straw); Glucose,Urine (UA) 500 or Greater mg/dL (Negative); Leukocyte Esterase,Urine Negative (Negative); Mucus,Urine Few /lpf (Occasional); Nitrite,Urine Negative (Negative); Specific Gravity,Urine 1.028 (1.002-1.035)
[2018-10-22] MEDS ORDERED: MethylPREDNISolone Sod Succinate Inj 40 MG/ML Vial IV.PUSH ONE (19:14)
[2018-10-22] MEDS ORDERED: Bisacodyl 10 MG Supp RECTAL PRN (19:19)
[2018-10-22] MEDS ORDERED: Dextrose 50% in Water 50 ML Vial IV.PUSH PRN (19:21)
[2018-10-22] MEDS ORDERED: Finasteride 5 MG Tablet PO SCH (19:30)
[2018-10-22] MEDS: Gabapentin 300 MG Capsule PO SCH (20:30)
[2018-10-22] MEDS: Azithromycin 250 MG Tablet PO SCH (20:30)
[2018-10-22] MEDS: Insulin NovoLOG Aspart Correctional Sugar Inj SQ SCH (20:51)
[2018-10-22] MEDS ORDERED: CLOBETASOL TOPICAL SCH (21:00)
[2018-10-22 21:44] LABS: Baso % (Auto) 0.5 % (0.0-2.0); Eos # (Auto) 0.1 th/mm3 (0.0-0.4); Hematocrit 43.9 % (39.0-51.0); Hemoglobin 15.4 gm/dL (13.0-17.0); Lymph # (Auto) 2.2 th/mm3 (1.0-4.8); Lymph % (Auto) 35.8 % (9.0-44.0); Mean Corpuscular Hemoglobin 31.6 pg (27.0-34.0); Mean Corpuscular Volume 90.2 fL (80.0-100.0); Mean Platelet Volume 9.1 fL (7.0-11.0); Mono # (Auto) 0.5 th/mm3 (0.0-0.9); Mono % (Auto) 7.5 % (0.0-8.0); Neut # (Auto) 3.4 th/mm3 (1.8-7.7); Neut % (Auto) 54.2 % (16.0-70.0); Platelet Count 125 th/mm3 (150-450); Red Blood Count 4.87 mil/mm3 (4.50-5.90); Red Cell Distribution Width 13.1 % (11.6-17.2); White Blood Count 6.2 th/mm3 (4.0-11.0)
[2018-10-22 22:08] LABS: Alanine Aminotransferase 61 U/L (12-78); Anion Gap 9 meq/L (5-15); Aspartate Aminotransferase 33 U/L (15-37); Blood Urea Nitrogen 15 mg/dL (7-18); Calcium 9.1 mg/dL (8.5-10.1); Carbon Dioxide 24.1 meq/L (21.0-32.0); Chloride 104 meq/L (98-107); Glomerular Filtration Rate 58 mL/min (>89); Glucose,Random 294 mg/dL (74-106); Magnesium 2.3 mg/dL (1.5-2.5); Potassium 3.6 meq/L (3.5-5.1); Sodium 137 meq/L (136-145)
[2018-10-22 22:12] LABS: Alkaline Phosphatase 59 U/L (45-117); Total Protein 7.2 g/dL (6.4-8.2)
[2018-10-22 22:50] LABS: Creatine Kinase 93 U/L (39-308)
[2018-10-23 04:04] LABS: Anion Gap 8 meq/L (5-15); Blood Urea Nitrogen 15 mg/dL (7-18); Calcium 9.2 mg/dL (8.5-10.1); Carbon Dioxide 26.9 meq/L (21.0-32.0); Chloride 103 meq/L (98-107); Glomerular Filtration Rate 56 mL/min (>89); Glucose,Random 324 mg/dL (74-106); Potassium 3.9 meq/L (3.5-5.1); Sodium 138 meq/L (136-145)
[2018-10-23 04:10] LABS: Creatine Kinase 101 U/L (39-308)
--- NOTE | 2018-10-23 08:04 | XR ---
EXAM DATE: 10/23/2018 7:55 AM EST AGE/SEX: 73 years / Male INDICATIONS: . Shortness of breath. CLINICAL DATA: This is the patient's subsequent encounter. Patient reports that signs and symptoms h ave been present for 4 - 6 days and indicates a pain score of 0/10. MEDICAL/SURGICAL HISTORY: . Congestive heart failure. Chronic obstructive pulmonary disease. Di abetes. . Appendectomy. [place] [facility] [place]. . FINDINGS: The lungs are clear without infiltrate, nodule, or mass. There is no appreciable pleural effusion fo r technique. Heart and mediastinum are unremarkable. CONCLUSION: No acute cardiopulmonary disease. Electronically signed by: Ilda Felipe MD Board Certified Radiologist 10/23/2018 8:02 AM EST
[2018-10-23] MEDS ORDERED: Insulin Detemir Inj 1,000 UNIT/10 ML Vial SQ SCH (09:00)
[2018-10-23] MEDS: Insulin NovoLOG Aspart Correctional Sugar Inj SQ SCH ×3 (09:14→16:41)
[2018-10-23] MEDS ORDERED: Isosorbide Mononitrate 60 MG ER 24HR Tablet (Imdur) PO SCH (09:15)
[2018-10-23] MEDS: Azithromycin 250 MG Tablet PO SCH (09:51)
[2018-10-23] MEDS: Gabapentin 300 MG Capsule PO SCH (09:51)
[2018-10-23 12:44] VITALS: RESP 16
--- NOTE | 2018-10-23 13:50 | P.PNFP ---
Subjective Interval history: 73 year old male with COPD, CHF, CAD, hyperlipidemia, diabetes, AAA, cardiac stent, agent orange exposure in the [place] war, presented yesterday with shortness of breath that started 5 days ago with gradual onset. With orthopnea. Exertional in nature. Unable to walk 50 yards without stopping, which is not his baseline. Also with cough and clear sputum production. Chest tightness just with the shortness of breath. Feels lightheaded and weak when short of breath. 73 y/o M w/hx of COPD, CHF, and agent orange exposure presents w/SOB. Five days ago, patient noticed worsening shortness of breath with any kind of exercise and laying flat. Yesterday, was unable to walk 50 yards without stopping to catch his breath. This afternoon, he just started to have a dry cough. States he feels tightness around the chest like a band. Recovers after sitting down for 15-20 minutes. Chest tightness is in the center of the chest. Happens every time he gets short of breath. If he starts to push through the SOB , the chest tightness starts to burn. +Associated w/lightheadedness and dizziness, weight gain of 8lb in the last few weeks he attributes to holiday over-eating. No diaphoresis. 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 Last echo was in July while in [place]. Also had catheterization. Does not know what his EF was. Was told the results of both tests were "good." Patient seen with resident team, Dr. Fairchild, Dr. Patel, Dr. Manuel. He is sitting up on the side of the bed in no distress. Reports feeling 100% back to normal. Breathing significantly better. No chest pain overnight. No abdominal pain, nausea, vomiting, diarrhea, appetite is good. Blood sugars elevated secondary to steroids. Eager to go home today. Results - Labs Result diagrams: 10/22/18 21:29 10/23/18 03:10 Abnormal lab results 10/22/18 10/22/18 10/22/18 Range/Units 15:00 15:00 18:09 Plt Count 140 L (150-450) th/mm3 Estimated GFR 63 L (>89) mL/min POC Glucose (68-110) mg/dl Random Glucose 232 H (74-106) mg/dL Lactic Acid (0.4-2.0) mmol/L Troponin I Less than 0.02 L (0.02-0.05) ng/mL Urine Ketones Trace H (Negative) mg/dL Urine Mucus Few H (Occasional) /lpf 10/22/18 10/22/18 10/22/18 Range/Units 20:36 21:29 21:29 Plt Count 125 L (150-450) th/mm3 Estimated GFR 58 L (>89) mL/min POC Glucose 277 H (68-110) mg/dl Random Glucose 294 H (74-106) mg/dL Lactic Acid (0.4-2.0) mmol/L Troponin I Less than 0.02 L (0.02-0.05) ng/mL Urine Ketones (Negative) mg/dL Urine Mucus (Occasional) /lpf 10/22/18 10/23/18 10/23/18 Range/Units 21:29 03:10 03:38 Plt Count (150-450) th/mm3 Estimated GFR 56 L (>89) mL/min POC Glucose (68-110) mg/dl Random Glucose 324 H (74-106) mg/dL Lactic Acid 2.4 H 2.1 H (0.4-2.0) mmol/L Troponin I Less than 0.02 L (0.02-0.05) ng/mL Urine Ketones (Negative) mg/dL Urine Mucus (Occasional) /lpf 10/23/18 10/23/18 Range/Units 09:11 12:29 Plt Count (150-450) th/mm3 Estimated GFR (>89) mL/min POC Glucose 370 H 396 H (68-110) mg/dl Random Glucose (74-106) mg/dL Lactic Acid (0.4-2.0) mmol/L Troponin I (0.02-0.05) ng/mL Urine Ketones (Negative) mg/dL Urine Mucus (Occasional) /lpf Short CBC 10/22/18 10/22/18 Range/Units 15:00 21:29 WBC 6.0 6.2 (4.0-11.0) th/mm3 Hgb 15.1 15.4 (13.0-17.0) gm/dL Hct 43.7 43.9 (39.0-51.0) % Plt Count 140 L 125 L (150-450) th/mm3 BMP 10/22/18 10/22/18 10/23/18 15:00 21:29 03:10 Sodium 139 137 138 Potassium 4.1 3.6 3.9 Chloride 104 104 103 Carbon Dioxide 26.0 24.1 26.9 BUN 15 15 15 Creatinine 1.15 1.23 1.26 Calcium 8.9 9.1 9.2 Cardiac Enzymes 10/22/18 10/22/18 10/22/18 Range/Units 15:00 21:29 21:29 Total Creatine Kinase 109 93 Cancelled (39-308) U/L CK-MB (CK-2) 1.8 (0.5-3.6) ng/mL Troponin I Less than 0.02 L Less than 0.02 L Cancelled (0.02-0.05) ng/mL 10/23/18 Range/Units 03:10 Total Creatine Kinase 101 (39-308) U/L CK-MB (CK-2) (0.5-3.6) ng/mL Troponin I Less than 0.02 L (0.02-0.05) ng/mL Liver Function 10/22/18 10/22/18 Range/Units 15:00 21:29 Total Bilirubin 0.5 0.5 (0.2-1.0) mg/dL AST 35 33 (15-37) U/L ALT 66 61 (12-78) U/L Alkaline Phosphatase 60 59 (45-117) U/L Albumin 4.0 4.0 (3.4-5.0) g/dL Urine 10/22/18 Range/Units 18:09 Urine Color Yellow (Yellw/Straw) Urine Clarity Clear (Clear) Urine pH 5.0 (5.0-8.5) Ur Specific [place] 1.028 (1.002-1.035) Urine Protein Negative (Neg-Trace) mg/dL Urine Glucose (UA) 500 or greater (Negative) mg/dL - Imaging Impressions Chest X-Ray 10/22/18 14:57 CONCLUSION: 1. Stable mild compensated cardiomegaly. Chest CTA 10/22/18 16:15 CONCLUSION: 1. No evidence of pulmonary embolism. 2. Single well-defined 8 mm pulmonary nodule in the right perihilar area. Recommend PET/CT to evaluate for focal hypermetabolic activity. Chest X-Ray 10/23/18 07:00 CONCLUSION: No acute cardiopulmonary disease. Physical Exam Vital signs: Vital Signs 10/22/18 14:46 10/22/18 15:37 10/22/18 16:31 Temperature 98.9 F Pulse Rate 73 77 73 Respiratory Rate 18 22 Blood Pressure 154/100 H Pulse Oximetry 98 96 10/22/18 17:29 10/22/18 18:20 10/22/18 20:00 Temperature 97.4 F L Pulse Rate 75 69 77 Respiratory Rate 20 18 22 Blood Pressure 131/89 145/68 H Pulse Oximetry 98 94 L 10/22/18 20:03 10/22/18 23:54 10/23/18 03:02 Temperature 97.4 F L 98.3 F Pulse Rate 75 76 Respiratory Rate 22 20 Blood Pressure 148/75 H 117/68 Pulse Oximetry 97 94 L 93 L 10/23/18 07:16 10/23/18 07:44 10/23/18 11:27 Temperature 98.3 F Pulse Rate 80 102 H 94 H Respiratory Rate 18 16 17 Blood Pressure 142/72 H Pulse Oximetry 94 L 92 L 10/23/18 12:00 Temperature 97.6 F Pulse Rate 103 H Respiratory Rate 16 Blood Pressure 143/72 H Pulse Oximetry 93 L Intake & Output 10/22/18 10/23/18 10/23/18 18:59 06:59 18:59 Weight 124.284 kg 124.284 kg Other: Date of Last Bowel Movement 10/22/18 Weight On Admission 124.284 kg Narrative: General: Obese gentleman, sitting up on side of bed, no distress Skin: No rashes or lesions HEENT: normocephalic, no conjunctivitis, no nasal discharge Neck: Supple, no thyromegaly, no lymphadenopathy, no JVD CV: RRR, no murmurs, rubs, or gallops, regular pulses, normal cap refill Lungs: CTAB, mildly prolonged expiratory phase, decreased air entry, not on room air. We walked him down the [place] with pulse ox, did very well, O2 about 94 % without oxygen supplementation. Not using accessory muscles to breath. No respiratory distress. Talks in full sentences. Abdomen: Soft, nontender, nondistended, normal bowel sounds Ext: No edema Neuro: Awake, alert Psych: Appropriate mood and affect, normal insight and judgment Assessment and Plan - Assessment (1) Dyspnea Code(s): R06.00 - Dyspnea, unspecified Status: Acute Plan: Diff: COPD exacerbation v ACS v CHF exacerbation v obesity hypoventilation syndrome Likely COPD exacerbation given history and exam findings BNP normal range and CXR read as wnl ACS ruled out w/trops and EKG [facility]es [facility]. Not a current smoker - Continue inhalers - Continue Azithromycin for 5 days - Continue prednisone for 5 day course - Continue Symbicort - Close follow up with PCP - ECHO pending - Prevnar and flu vaccine if not received (2) Incidental pulmonary nodule, greater than or equal to 8mm Code(s): R91.1 - Solitary pulmonary nodule Status: Acute Plan: On CTA 10/22/18 : Single well-defined 8 mm pulmonary nodule in the right perihilar area. Recommend PET/CT to evaluate for focal hypermetabolic activity as an outpatient. Discuss finding with patient, and place in discharge paperwork. (3) CHF (congestive heart failure) Code(s): I50.9 - Heart failure, unspecified Status: Acute Plan: Does not seem like an exacerbation. Picture more consistent with COPD exacerbation. Con't losartan, metoprolol, Imdur. Follow up with r[facility] closely. Limit sodium intake. (4) COPD (chronic obstructive pulmonary disease) Code(s): J44.9 - Chronic obstructive pulmonary disease, unspecified Status: Acute Plan: See above plan (5) REJI (obstructive sleep apnea) Code(s): G47.33 - Obstructive sleep apnea (adult) (pediatric) Status: Acute Plan: Uses CPAP at night. Keep head of bed elevated to 30 degrees to allow optimum ventilation. (6) History of CVA (cerebrovascular accident) Code(s): Z86.73 - Personal history of transient ischemic attack (TIA), and cerebral infarction without residual deficits Status: Acute Plan: Blood pressure control outpatient (7) Coronary artery disease Code(s): I25.10 - Atherosclerotic heart disease of [place] coronary artery without angina pectoris Status: Acute Plan: Con't home meds (8) Diabetes mellitus Code(s): E11.9 - Type 2 diabetes mellitus without complications Status: Acute Plan: Takes metformin, sliding scale, and glargine at home. Empagliflozin was recently added. SSI w/accuchecks Con't home Gabapentin 300 mg BID Fluids: by mouth Electrolytes: stable Nutrition: Diabetic diet DVT prophy: SCD's DNR code - Assessment and Plan Discussed Condition With: Seen and discussed with Dr. Fairchild, Dr. Patel, Dr. Manuel Discharge Planning: - COPD: continue symbicort, albuterol. Does not smoke. Follow closely with PCP. May benefit from pulmonary rehab outpatient. Continue prednisone for 5 days. Continue Azithromycin for 5 days. Passed O2 walk test, does not need oxygen at home. - CHF: Stable, continue metoprolol, Losartan, Imdur, limit sodium intake, diuretics as needed for fluid overload. Close follow up with PCP. - Likely discharge home today, discharge instructions given in detail to patient.
--- NOTE | 2018-10-23 15:06 | ECHRPT ---
Indication: CHEST PAIN CONCLUSIONS Normal left ventricular size. Wall thickness is normal. The left ventricular systolic function is low normal with an estimated ejection fraction in the rang e of 50- 55%. The left atrial size is mildly dilated. The estimated pulmonary arterial pressure is 23 mmHg. There is trace tricuspid valve regurgitation. BP: / HR: Rhythm: MEASUREMENTS (Male / Female) Normal Values Technical Quality: 2D ECHO LV Diastolic Diameter PLAX 4.6 cm 4.2 - 5.9 / 3.9 - 5.3 cm LV Systolic Diameter PLAX 3.5 cm IVS Diastolic Thickness 1.2 cm 0.6 - 1.0 / 0.6 - 0.9 cm LVPW Diastolic Thickness 1.2 cm 0.6 - 1.0 / 0.6 - 0.9 cm LV Relative Wall Thickness 0.5 RV Internal Dim ED PLAX 3.3 cm LVOT Diameter 2.1 cm Aortic Root Diameter 3.3 cm LA Systolic Diameter LX 4.7 cm 3.0 - 4.0 / 2.7 - 3.8 cm DOPPLER AV Peak Velocity 157.0 cm/s AV Peak Gradient 9.9 mmHg LVOT Peak Velocity 103.0 cm/s LVOT Peak Gradient 4.2 mmHg AV Area Cont Eq pk 2.3 cm Mitral E Point Velocity 44.9 cm/s Mitral A Point Velocity 69.1 cm/s Mitral E to A Ratio 0.6 LV E' Lateral Velocity 6.7 cm/s Mitral E to LV E' Lateral Ratio 6.7 LV E' Septal Velocity 6.8 cm/s Mitral E to LV E' Septal Ratio 6.6 TR Peak Velocity 183.0 cm/s TR Peak Gradient 13.4 mmHg Right Atrial Pressure 10.0 mmHg Pulmonary Artery Systolic Pressu 23.4 mmHg Right Ventricular Systolic Press 23.4 mmHg PV Peak Velocity 125.0 cm/s PV Peak Gradient 6.3 mmHg FINDINGS LEFT VENTRICLE Normal left ventricular size. Wall thickness is normal. The left ventricular systolic function is low normal with an estimated ejection fraction in the rang e of 50- 55%. RIGHT VENTRICLE Normal right ventricular size and systolic function. LEFT ATRIUM The left atrial size is mildly dilated. RIGHT ATRIUM The right atrial size is normal. ATRIAL SEPTUM Normal atrial septal thickness without atrial level shunting by limited color doppler interrogation. AORTA Upper normal limits. MITRAL VALVE Structurally normal mitral valve. No mitral valve stenosis or regurgitation. AORTIC VALVE Trileaflet aortic valve. No aortic valve stenosis or regurgitation. TRICUSPID VALVE The estimated pulmonary arterial pressure is 23 mmHg. There is trace tricuspid valve regurgitation. PULMONARY VALVE No pulmonary valve regurgitation or stenosis. VESSELS The inferior vena cava is normal in size. PERICARDIUM No pericardial effusion. Nir Hand MD (Electronically Signed) Final Date:23 October 2018 15:05
[2018-10-23 16:21] VITALS: BP 123/70; PULSE 102; TEMP 98.1; O2SAT 94
--- NOTE | 2018-10-23 16:44 | ECG ---
Date Performed: 10/22/2018 Time Performed: 14:49:20 PTAGE: 73 years EKG: Sinus rhythm NONSPECIFIC T-WAVE ABNORMALITY BORDERLINE ECG NO PREVIOUS TRACING DOCTOR: Dontrell Teresa Interpretating Date/Time 10/23/2018 16:44:01
--- NOTE | 2018-10-23 16:45 | ECG ---
Date Performed: 10/22/2018 Time Performed: 22:04:14 PTAGE: 73 years EKG: Sinus rhythm WITH OCCASIONAL VENTRICULAR PREMATURE COMPLEXES INDETERMINATE AXIS NONSPECIFIC T-WAVE ABNORMALITY JEFFREY RDERLINE ECG Compared to PREVIOUS TRACING , PVCs are new PREVIOUS TRACIN10/22/2018 14.49 DOCTOR: Dontrell Teresa Interpretating Date/Time 10/23/2018 16:44:27
--- NOTE | 2018-10-23 16:47 | ECG ---
Date Performed: 10/23/2018 Time Performed: 03:00:10 PTAGE: 73 years EKG: Sinus rhythm NONSPECIFIC T-WAVE ABNORMALITY ABNORMAL ECG Compared to PREVIOUS TRACING , T wave slightly more prominent in leads I and AVL. PVCs no longer pres ent. PREVIOUS TRACIN10/22/2018 22.04 DOCTOR: Dontrell Teresa Interpretating Date/Time 10/23/2018 16:45:16
== END 2018-10-23 18:02 | disposition home or self-care (01) ==
LOC: NEPE 13:44 → NEDA 13:44 → NEPGCP 20:06
PROVIDERS: ADMIT Family Medicine; ATTEND Family Medicine
CPT/HCPCS: 71010; 71020; 71045; 71046; 71275; 80048; 80053; 81001; 82550; 82552; 82948; 82962; 83520; 83605; 83735; 83880; 84484; 85025; 85610; 85730; 93005; 93306; 94640; 94665; 96372; 96374; 96375; 99285; G0378; J1815; J1940; J2920; Q9967